=== PATIENT | female | born 1960 | race Caucasian/White ===

== ENCOUNTER 2016-06-10 18:01 | Emergency (ER) | payer SELFPAY ==
[~2016-06-10] VITALS: Ht 154.9 cm; Wt 72.6 kg
[2016-06-10] MEDS ORDERED: IV NS 0.9% 500 ML BAG IV ONE (18:30)
[2016-06-10] MEDS ORDERED: OLANZAPINE 10 MG VIAL IM ONE ×2 (18:30→18:32)
[2016-06-10] MEDS ORDERED: WATER FOR INJECTION,STERILE 10 ML ONE (18:32)
[2016-06-10 18:54] LABS: BASOPHILS % (AUTO) 0.2 % (0.0-2.0); DIFF TOTAL % 100 %; EOSINOPHILS # (AUTO) 0.1 /CMM (0.0-0.7); EOSINOPHILS % (AUTO) 1.2 % (0.0-6.0); HEMATOCRIT 38 % (33-45); HEMOGLOBIN 12.4 g/dL (11.5-14.8); LYMPHOCYTES # (AUTO) 1.4 /CMM (0.8-4.8); LYMPHOCYTES % (AUTO) 13.8 % (20.0-44.0); MEAN CORPUSCULAR HEMOGLOBIN 28 PG (26.0-33.0); MEAN CORPUSCULAR HGB CONC 33 g/dl (31.0-36.0); MEAN CORPUSCULAR VOLUME 85 fL (82-100); MONOCYTES # (AUTO) 0.7 /CMM (0.1-1.30); MONOCYTES % (AUTO) 7.2 % (2.0-12.0); NEUTROPHILS % (AUTO) 77.6 % (43.0-81.0); PLATELET COUNT (AUTO) 268 /CMM (150-450); RED BLOOD CELL COUNT(AUTO) 4.43 MIL/uL (4.0-5.2); WHITE BLOOD COUNT (AUTO) 10.3 K/uL (4.3-11.0)
[2016-06-10 19:05] LABS: ANION GAP 13 (5-14); CALCIUM, SERUM 9.5 mg/dL (8.5-10.1); CARBON DIOXIDE 27 mmol/L (21-32); CHLORIDE 107 mmol/L (98-107); GFR 58 mL/min (>60); GLUCOSE 113 mg/dL (74-106); POTASSIUM 4.1 mmol/L (3.5-5.1); SODIUM SERUM 143 mmol/L (136-145); UREA NITROGEN, BLOOD 10 mg/dL (7-18)
[2016-06-10] MEDS ORDERED: LORAZEPAM INJ 2 MG/ML VIAL ONE (19:09)
[2016-06-10 19:11] LABS: TROPONIN I < 0.017 ng/mL (0.00-0.056)
[2016-06-10] MEDS ORDERED: IV NS 0.9% 500 ML IV ONE (19:15)
[2016-06-10] MEDS ORDERED: IV SET PRIMARY 1 EA INFUS.SET MC ONE ×2 (19:15→19:20)
[2016-06-10] MEDS ORDERED: IV NS 0.9% 1,000 ML ONE (19:20)
[2016-06-10] MEDS ORDERED: IV NS 0.9% 1,000 ML IV ONE (19:30)
[2016-06-10] MEDS ORDERED: LORAZEPAM INJ 2 MG/ML VIAL IV ONE (19:30)
[2016-06-11 07:42] VITALS: BP 121/68
== END 2016-06-11 06:02 | disposition home or self-care (01) ==
LOC: ER 18:03
DX: F19.10 Other psychoactive substance abuse, uncomplicated (principal); R41.82 Altered mental status, unspecified; F17.210 Nicotine dependence, cigarettes, uncomplicated; Z59.0 Homelessness; F10.20 Alcohol dependence, uncomplicated
CPT/HCPCS: 36415; 70450; 80048; 84484; 85025; 93005; 96372; 96374; 99285; A4606; G0481; J2060; J3490; J7030; J7040; Z7610; G6040-TC

== ENCOUNTER 2018-06-17 22:28 | Inpatient (IN) | payer MEDICAID ==
[~2018-06-17] VITALS: Ht 172.7 cm; Wt 60.8 kg
--- NOTE | 2018-06-17 23:25 | NUR ---
Pt came in from the streets with c/o abdominal pain, states "my liver hurts ." Pt is A, O/4, walks without difficulty, on RA, does not appear in distress. Awaiting orders from .
[2018-06-17] MEDS ORDERED: ONDANSETRON 4 MG TAB.RAPDIS ONE (23:49)
[2018-06-17] MEDS ORDERED: HYDROCODONE/APAP 10/325MG 1 EA TABLET ONE (23:49)
[2018-06-17 23:57] LABS: BASOPHILS # (AUTO) 0.1 /CMM (0.0-0.2); BASOPHILS % (AUTO) 0.3 % (0.0-2.0); EOSINOPHILS % (AUTO) 0.3 % (0.0-6.0); HEMATOCRIT 41 % (33-45); HEMOGLOBIN 13.5 g/dL (11.5-14.8); LYMPHOCYTES # (AUTO) 1.3 /CMM (0.8-4.8); LYMPHOCYTES % (AUTO) 5.9 % (20.0-44.0); MEAN CORPUSCULAR HGB CONC 33 g/dl (31.0-36.0); MEAN CORPUSCULAR VOLUME 88 fL (82-100); MONOCYTES # (AUTO) 1.7 /CMM (0.1-1.30); MONOCYTES % (AUTO) 7.9 % (2.0-12.0); NEUTROPHILS # (AUTO) 18.6 /CMM (1.8-8.9); NEUTROPHILS % (AUTO) 85.6 % (43.0-81.0); PLATELET COUNT (AUTO) 332 /CMM (150-450); RED BLOOD CELL COUNT(AUTO) 4.67 MIL/uL (4.0-5.2); WHITE BLOOD COUNT (AUTO) 21.8 K/uL (4.3-11.0)
[2018-06-18] MEDS ORDERED: ONDANSETRON 4 MG TAB.RAPDIS SL ONE
[2018-06-18] MEDS ORDERED: HYDROCODONE/APAP 10/325MG 1 EA TABLET PO ONE
[2018-06-18 00:05] LABS: CARBON DIOXIDE 26 mmol/L (21-32); CHLORIDE 101 mmol/L (98-107); CREATININE 0.5 mg/dL (0.6-1.3); GLUCOSE 115 mg/dL (74-106); POTASSIUM 4.1 mmol/L (3.5-5.1); SODIUM SERUM 135 mmol/L (136-145); UREA NITROGEN, BLOOD 7 mg/dL (7-18)
--- NOTE | 2018-06-18 00:07 | NUR ---
Pt transported to Radiology for CT Abdomen
[2018-06-18 00:11] LABS: ALANINE AMINOTRANSFERASE 19 U/L (12-78); ALBUMIN 3.3 g/dL (3.4-5.0); ALKALINE PHOSPHATASE 90 U/L (46-116); ASPARTATE AMINOTRANSFERASE 15 U/L (15-37); BILIRUBIN,DIRECT 0.1 mg/dL (0.0-0.2); BILIRUBIN,TOTAL 0.2 mg/dL (0.2-1.0); LIPASE 150 U/L (73-393)
--- NOTE | 2018-06-18 00:12 | NUR ---
Pt transported back from Radiology
--- NOTE | 2018-06-18 00:15 | NUR ---
US Gallbladder in progress
[2018-06-18] MEDS ORDERED: CEFTRIAXONE 1 G in IV D5W 50 ML IV ONE (00:30)
[2018-06-18] MEDS ORDERED: PIPERACILLIN /TAZOBACTAM 3.375 G VIAL IV ONE (00:39)
--- NOTE | 2018-06-18 00:53 | NUR ---
PANEL PAGED PER MD BAIRES
[2018-06-18] MEDS ORDERED: PIPERACILLIN /TAZOBACTAM 3.375 G in IV D5W 50 ML IV ONE (01:00)
[2018-06-18] MEDS ORDERED: ACETAMINOPHEN 325 MG TABLET PO PRN (01:30)
[2018-06-18] MEDS ORDERED: Z GUARD REMEDY 2 OZ OINT TP PRN (01:30)
[2018-06-18] MEDS ORDERED: MORPHINE SULFATE INJ 2 MG/ML DISP.SYRIN IV PRN (01:30)
[2018-06-18] MEDS ORDERED: ONDANSETRON HCL/PF 4 MG/2 ML VIAL IVP PRN (01:30)
[2018-06-18] MEDS ORDERED: MAG HYDROX/AL HYDROX/SIMETH 30 ML UDC PO PRN (01:30)
[2018-06-18] MEDS ORDERED: MAGNESIUM HYDROXIDE 30 ML UDC PO PRN (01:30)
--- NOTE | 2018-06-18 01:35 | NUR ---
Pt admitted to Rm 200, report given to CHRISTIAN Nolasco.
--- NOTE | 2018-06-18 01:40 | NUR ---
VRT MECHANIC NOTES PT ARRIVED TO THE UNIT VIA GURNEY AT 0140. PT CAME INTO THE HOSPITAL DUE TO ABD PAIN. ALL PATIENT BELONGINGS ACCOUNTED FOR AND DOCUMENTED. PT HAS A LEFT HAND #20 INTACT AND PATENT. ORIENTED PT TO THE USE OF THE CALL LIGHT BUTTON. SAFETY PRECAUTIONS IN PLACE, BED IN LOWEST LOCKED POSITION, X2 SIDE RAILS UP AND CALL LIGHT WITHIN REACH. WILL CONTINUE TO MONITOR.
[2018-06-18] MEDS: IV NS 0.9% 1,000 ML IV PRN (01:59)
[2018-06-18 02:47] LABS: APPEARANCE,URINE SL CLOUDY (CLEAR); BILIRUBIN,URINE NEGATIVE (NEGATIVE); BLOOD, URINE 3+ Ery/uL (NEGATIVE); COLOR,URINE YELLOW (YELLOW); KETONES,URINE NEGATIVE (NEGATIVE); LEUKOCYTE ESTERASE ,URINE 3+ (NEGATIVE); NITRITE, URINE NEGATIVE (NEGATIVE); PROTEIN,URINE NEGATIVE (NEGATIVE); UGLUCOSE NEGATIVE (NEGATIVE); UROBILINOGEN,URINE 0.2 EU/dL (0.2)
[2018-06-18 02:56] LABS: BACTERIA,URINE Moderate /HPF (None Seen); SQUAMOUS EPITHELIAL CELL,UR Moderate /HPF (None Seen); WBC,URINE 51-80 /HPF (0-3)
[2018-06-18] MEDS: HYDROCODONE/APAP 5/325MG 1 EACH TABLET PO PRN ×3 (04:58→21:25)
--- NOTE | 2018-06-18 05:20 | NUR ---
RN NOTES MORPHINE UNAVAILABLE ON UNIT. CALLED TO CLARIFY COMPARABLE MEDICATION WITH MOUSTAPHA PETERSON NP. NICHOLAS ORDERED PRN 0.5MG DILAUDID Q6H IV.
[2018-06-18] MEDS ORDERED: PIPERACILLIN /TAZOBACTAM 3.375 G in IV D5W 50 ML IV SCH (06:00)
--- NOTE | 2018-06-18 07:35 | NUR ---
MS RN OPENING NOTES RECEIVED PT LAYING IN BED, RESTING COMFORTABLE. PT IS EASILY AROUSABLE. PT IS A/O 4, AFEBRILE. RESPIRATIONS ARE EVEN AND UNLABORED, NOT IN ANY ACUTE DISTRESS NOTED. DENIES ANY CHEST PAIN, SOB, N/V. IV SITE TO LEFT HAND INTACT, NO INFILTRATION NOTED. DRESSING KEPT CLEAN AND DRY. SAFETY MEASURES ARE IN PLACE. INSTRUCTED PT TO USE CALL LIGHT WHEN ASSISTANCE IS NEEDED, CALL LIGHT IS LEFT WITHIN REACH. WILL CONTINUE TO MONITOR THROUGHOUT SHIFT FOR CONTINUITY OF CARE.
[2018-06-18 08:00] VITALS: BP 99/53
[2018-06-18] MEDS: PANTOPRAZOLE 40 MG VIAL IV SCH (08:43)
[2018-06-18] MEDS: PIPERACILLIN /TAZOBACTAM 3.375 G in IV D5W 100 ML IV SCH ×2 (09:37→17:03)
--- NOTE | 2018-06-18 11:09 | NUR ---
Social service consult requested by RAMAKRISHNA Orellana for homelessness and substance abuse. Pt. is a 58 year old female who was admitted to [facility] for cholecystitis. SW met with pt. bedside. Pt. is alert and oriented x 4. Pt. appears disheveled. Pt's belongings are bedside. SW was informed by pt's RN that pt. was caught smoking marijuana in the bathroom. Marijuana was confiscated from the pt. and pt. was informed about the rules and regulations regarding smoking. SW also reiterated to the pt. the rules regarding smoking in the hospital. Pt. states she is not homeless and has a place to live in [facility]. However, pt. would not give SW the address to where she resides. Pt. states she is going to call her friend Stepan and stay at his house. SW asked for Stepan's phone number, but pt. did not want to give it to the SW. Pt. denies drug use except for marijuana use. Pt. states she did use cocaine in the past when she was younger but doesn't anymore. Pt. denies drinking alcohol. JEFFREY offered pt. homeless patient resources and snf placement, however pt. declined. Pt. states, she doesn't need any resources. No other social service needs are requested at this time. SW is available, if needed. JEFFREY to meet with pt. once again prior to discharge to offer resources again.
--- NOTE | 2018-06-18 15:31 | NUR ---
MS GONZALES NOTES-- EXPLAINED DISCHARGE PAPERWORK TO PT AND DAUGHTER NITA WITH VERBAL AND WRITTEN UNDERSTANDING. BELONGINGS LIST WAS DONE. PT IS CURRENTLY WEARING BOTH UPPER AND LOWER DENTURES. GAVE REPORT TO JON FROM [facility]. WAITING TRANSPORTATION. Addendum: 06/18/18 at 1637 by JUAN BLAKE RN INCORRECT CHART.
--- NOTE | 2018-06-18 15:31 | NUR ---
MS GONZALES NOTES-- EXPLAINED DISCHARGE PAPERWORK TO PT AND DAUGHTER NITA WITH VERBAL AND WRITTEN UNDERSTANDING. BELONGINGS LIST WAS DONE. PT IS CURRENTLY WEARING BOTH UPPER AND LOWER DENTURES. GAVE REPORT TO JON FROM [facility]. WAITING TRANSPORTATION. Addendum: 06/18/18 at 1633 by JUAN BLAKE RN INCORRECT CHART.
[2018-06-18 16:00] VITALS: BP 95/51
--- NOTE | 2018-06-18 16:30 | NUR ---
MS SNOUT PULLER NOTES PT DISCHARGE TO [facility] IN STABLE CONDITION. PT IS A/O X4, AFEBRILE. RESPIRATIONS ARE EVEN AND UNLABORED, NOT IN ANY ACUTE DISTRESS NOTED. PT DENIES ANY CHEST PAIN AT THIS TIME, NO C/O SOB, N/V. PUPILS ARE REACTIVE TO LIGHT, BILATERAL HAND ELECTRICAL ACCESSORIES ASSEMBLER ARE STRONG AND EQUAL. DENIES ANY BLADDER DISCOMFORT. IV SITE TO RAC INTACT, DRESSING KEPT CLEAN AND DRY. PT P/U BY [facility] WITH 2 EMT PERSONNEL. PT LEFT IN STABLE CONDITION. Addendum: 06/18/18 at 1635 by JUAN BLAKE RN INCORRECT CHART. PLEASE DISREGARD.
--- NOTE | 2018-06-18 16:35 | NUR ---
MS RN NOTES-- PT IS NOT IN ANY APPARENT DISTRESS NOTED. WILL CONTINUE TO MONITOR THE PT.
[2018-06-18] MEDS: HYDROMORPHONE INJ 2 MG/ML DISP.SYRIN IV PRN (17:03)
--- NOTE | 2018-06-18 18:32 | NUR ---
MS RN CLOSING NOTES ALL DUE MEDS GIVEN, NEEDS MET AND RENDERED. PT REMAINS A/O X4, AFEBRILE. RESPIRATIONS ARE EVEN AND UNLABORED, NOT IN ANY ACUTE DISTRESS NOTED. PT DENIES ANY PAIN AT THIS, DILAUDID IS NOTED TO BE EFFECTIVE. DENIES ANY SOB, N/V. IV SITE TO LAC INTACT, NO INFILTRATION NOTED. DRESSING KEPT CLEAN AND DRY. IV ABX RUNNING AT THIS TIME W/ NO ASE NOTED. SAFETY MEASURES ARE IN PLACE. REMINDED PT TO USE CALL LIGHT WHEN ASSISTANCE IS NEEDED, CALL LIGHT IS LEFT WITHIN REACH. WILL ENDORSE TO NEXT SHIFT FOR CONTINUITY OF CARE.
--- NOTE | 2018-06-18 18:48 | NUR ---
MS RN NOTES-- UA SPECIMEN COLLECTED. LAB NOTIFIED.
--- NOTE | 2018-06-18 19:30 | NUR ---
RN NOTES RECEIVED PT. SLEEPING BUT AROUSABLE, NO PAIN NOTED, NO SOB, CALL LIGHT WITHIN REACH, [id number], CONTINUE TO MONITOR
[2018-06-18 19:52] VITALS: BP 90/56
--- NOTE | 2018-06-18 21:28 | NUR ---
RN NOTES COMPLAINED OF ABDOMINAL PAIN- NORCO 5/325 MG PO GIVEN ORDERED, V/S STABLE....
--- NOTE | 2018-06-18 22:27 | NUR ---
RN NOTES COMPLAINED OF CONSTIPATION- MOM 30ML PO GIVEN ORDERED
[2018-06-19] MEDS: PIPERACILLIN /TAZOBACTAM 3.375 G in IV D5W 100 ML IV SCH ×3 (00:06→16:58)
[2018-06-19] MEDS: IV NS 0.9% 1,000 ML IV PRN ×2 (00:07→21:10)
[2018-06-19] MEDS: HYDROMORPHONE INJ 2 MG/ML DISP.SYRIN IV PRN ×2 (00:07→06:42)
--- NOTE | 2018-06-19 00:16 | NUR ---
RN NOTES COMPLAINED OF ABDOMINAL PAIN- DIALUDID 0.5MG IV GIVEN ORDERED. V/S STABLE
--- NOTE | 2018-06-19 06:15 | NUR ---
RN NOTES PT. WAS MOVED TO ANOTHER UNIT ([facility]), EXPLAINED TO THE PATIENT THE REASON WHY WERE MOVING HER AND SHE AGREED
--- NOTE | 2018-06-19 06:50 | NUR ---
RN NOTES COMPLAINED OF ABDOMINAL PAIN- DILAUDID 0.5MG IV GIVEN ORDERED, V/S STABLE, MORNING CARE RENDERED, PT. NEEDS ATTENDED
[2018-06-19 07:27] LABS: BASOPHILS % (AUTO) 0.2 % (0.0-2.0); EOSINOPHILS % (AUTO) 2.2 % (0.0-6.0); HEMATOCRIT 35 % (33-45); HEMOGLOBIN 11.5 g/dL (11.5-14.8); LYMPHOCYTES # (AUTO) 1.9 /CMM (0.8-4.8); LYMPHOCYTES % (AUTO) 21.3 % (20.0-44.0); MEAN CORPUSCULAR HGB CONC 33 g/dl (31.0-36.0); MEAN CORPUSCULAR VOLUME 89 fL (82-100); MONOCYTES # (AUTO) 1.2 /CMM (0.1-1.30); MONOCYTES % (AUTO) 13.8 % (2.0-12.0); NEUTROPHILS # (AUTO) 5.7 /CMM (1.8-8.9); NEUTROPHILS % (AUTO) 62.5 % (43.0-81.0); PLATELET COUNT (AUTO) 268 /CMM (150-450); RED BLOOD CELL COUNT(AUTO) 3.94 MIL/uL (4.0-5.2)
[2018-06-19 07:35] LABS: CALCIUM, SERUM 8.3 mg/dL (8.5-10.1); CREATININE 0.5 mg/dL (0.6-1.3); MAGNESIUM 2.1 mg/dL (1.8-2.4); PHOSPHORUS 3.5 mg/dL (2.5-4.9)
[2018-06-19 07:44] LABS: THYROID STIMULATING HORMONE 2.16 uIU/mL (0.358-3.74)
--- NOTE | 2018-06-19 07:47 | NUR ---
MS RN OPENING NOTES RECEIVED PT LAYING IN BED WITH HOB ELEVATED. PT IS A/O X4, AFEBRILE. RESPIRATIONS ARE EVEN AND UNLABORED, NOT IN ANY ACUTE DISTRESS NOTED. DENIES ANY PAIN AT THIS TIME. NO C/O SOB, N/V. PUPILS ARE REACTIVE TO LIGHT, BILATERAL HAND PIPE MAKER ARE STRONG AND EQUAL. IV SITE TO LAC INTACT, NO INFILTRATION NOTED. DRESSING KEPT CLEAN AND DRY. PT IS NPO AND IS AWARE, FOR HIDA SCAN TODAY. SAFETY MEASURES ARE IN PLACE. INSTRUCTED PT TO USE CALL LIGHT WHEN ASSISTANCE IS NEEDED, CALL LIGHT IS LEFT WITHIN REACH. WILL CONTINUE TO MONITOR THROUGHOUT SHIFT FOR CONTINUITY OF CARE.
[2018-06-19 08:00] VITALS: BP 97/59
[2018-06-19] MEDS: PANTOPRAZOLE 40 MG VIAL IV SCH (09:14)
--- NOTE | 2018-06-19 11:25 | NUR ---
MS RN NOTES-- PT P/U BY RADIOLOGY FOR HIDA SCAN IN STABLE CONDITION. NO NEW SKIN ISSUES NOTED. IV SITE TO LAC INTACT, NO INFILTRATION NOTED. DRESSING KEPT CLEAN AND DRY.
--- NOTE | 2018-06-19 13:15 | NUR ---
MS RN NOTES-- PT CAME BACK FROM HIDA SCAN IN STABLE CONDITION. PER YOLANDA, PT WILL GO BACK DOWN AT 1530. PT MADE AWARE.
--- NOTE | 2018-06-19 15:30 | NUR ---
MS RN NOTES-- PT P/U BY RADIOLOGY IN STABLE CONDITION VIA WC.
--- NOTE | 2018-06-19 15:48 | NUR ---
MS RN NOTES-- PT CAME BACK FROM RADIOLOGY IN STABLE CONDITION VIA WHEELCHAIR. NO NEW SKIN ISSUES NOTED.
[2018-06-19 16:00] VITALS: BP 94/47
--- NOTE | 2018-06-19 17:35 | NUR ---
MS RN NOTES-- RAMAKRISHNA GERARD MADE AWARE OF HIDA SCAN RESULTS.
--- NOTE | 2018-06-19 18:22 | NUR ---
MS RN NOTES-- PT SEEN AND EXAMINED BY RAMAKRISHNA GERARD. PT WILL BE DISCHARGED TOMORROW PER MOUSTAPHA
--- NOTE | 2018-06-19 18:22 | NUR ---
MS RN CLOSING NOTES ALL DUE MEDS GIVEN, NEEDS MET AND RENDERED. PT IS A/O X4 AFEBRILE. RESPIRATIONS ARE EVEN AND UNLABORED, NOT IN ANY ACUTE DISTRESS NOTED. PT DENIES ANY PAIN AT THIS TIME, NO C/O SOB,N /V. PT WAS ABLE TO TOLERATE REGULAR DIET, DOUBLE PORTIONS. IV ACCESS TO LAX INTACT, NO INFILTRATION NOTED. DRESSING KEPT CLEAN AND DRY. IV ABX RUNNING AT THIS TIME, TOLERATING WELL. SAFETY MEASURES ARE IN PLACE. REMINDED PT TO USE CALL LIGHT WHEN ASSISTANCE IS NEEDED, CALL LIGHT IS LEFT WITHIN REACH.
[2018-06-19] MEDS ORDERED: BISACODYL SUPP (10 MG) 10 MG/SUPP.RECT SUPP.RECT RC PRN (18:30)
[2018-06-19] MEDS ORDERED: MINERAL OIL 133 ML (PYXIS) 1 EA ENEMA RC PRN (18:30)
[2018-06-19] MEDS ORDERED: POLYETHYLENE GLYCOL 3350 17 GM POWD.PACK PO ONE (18:30)
--- NOTE | 2018-06-19 19:00 | NUR ---
RN NOTES RECEIVE PT IN THE BED A/O X 3 IN STABLE CONDITION, NOT IN DISTRESS, SAFETY MEASURES IN PLACE. WILL CONTINUE TO MONITOR.
[2018-06-19 20:00] VITALS: BP 102/60
[2018-06-20] MEDS: PIPERACILLIN /TAZOBACTAM 3.375 G in IV D5W 100 ML IV SCH ×2 (01:24→09:54)
--- NOTE | 2018-06-20 06:14 | NUR ---
RN CLOSING NOTE PT IN BED AWAKE IN BED WATCHING TV TOLERATING ROOM AIR 99%. STABLE CONDITION, NOT IN DISTRESS. RESPIRATIONS EVEN AND UNLABORED. NURSING CARE RENDERED, GOOD SKIN CARE PROVIDED. NO COMPLAIN OF PAIN KEPT CLEAN AND DRY AND COMFORT, SAFETY MEASURES IN PLACE, CALL LIGHT WITHIN REACH. WILL ENDORSE TO BRANCH OPERATIONS MANAGER FOR HELEN.
[2018-06-20 07:58] VITALS: BP 94/54
--- NOTE | 2018-06-20 08:00 | NUR ---
m/s boilermaking supervisor: initial assessment received pt in bed awake, a/ox4; ambulatory. refused skin assessment. for d'c planning today. no c/o pain or any discomfort. will continue to monitor.
[2018-06-20] MEDS: PANTOPRAZOLE 40 MG VIAL IV SCH (09:54)
--- NOTE | 2018-06-20 10:00 | NUR ---
m/s automobile technician: gi f/u seen by dr. webb at this time and clear for d'c under gi standpoint as stated.
--- NOTE | 2018-06-20 11:42 | NUR ---
JEFFREY met with pt. bedside to discuss discharge plan. Pt. states she would like to go to the [facility] located at [address] [place] [address], in [place] where her friend Stepan will pick her up. Pt. declined any homeless resources. Homeless patient waiver form to be signed by pt. prior to discharge. Taxi transportation to be arranged by [facility] . Addendum: 06/20/18 at 1210 by ALONA MURPHY Homeless Patient Waiver Form was signed by the pt. and placed in pt's chart. Pt. to have lunch prior to discharge. No other social service needs are requested at this time. JEFFREY is available, if needed. JEFFREY updated ARJUN Sheikh and RAMAKRISHNA Smith regarding pt's discharge plan.
--- NOTE | 2018-06-20 12:23 | NUR ---
m/s pediatric np: notes received order to discharge pt with d'c instructions: DC to friend. History of homelessness; administrator social welfare obtained address and, provided taxi voucher, Followup with PCP within 1 week, High fiber diet, Smoking cessation, Seek immediate medical attention for worsening symptoms, chest pain,, shortness of breath, palpitations, abdominal pain distention, intractable, nausea and vomiting, diarrhea, hematochezia, melena, weakness, loss of, consciousness, neurological deficit, or any other emergent concerns. pt already signed the homeless pt waiver form and place in chart by gunner (administrator social welfare). pt will meet her friend at the address that was provided by pt. pt had move her bowel as stated at this time. h/l removed.
--- NOTE | 2018-06-20 12:35 | NUR ---
m/s kalsominer: notes discharged instructions with taxi voucher in hand given to pt and verbalized understanding. all belongings returned to pt.
--- NOTE | 2018-06-20 12:40 | NUR ---
m/s tax revenue officer: notes discharged home via taxi with voucher in stable condition with all belongings.
== END 2018-06-20 12:42 | disposition home or self-care (01) | DRG 872 ==
LOC: ER 22:29 → MEDSG2 06-18 01:00 → MED 06-19 06:14
PROVIDERS: ADMIT Hospitalist; ATTEND Hospitalist
DX: A41.9 Sepsis, unspecified organism (principal); E87.1 Hypo-osmolality and hyponatremia; E44.1 Mild protein-calorie malnutrition; N39.0 Urinary tract infection, site not specified; K82.0 Obstruction of gallbladder; Z59.0 Homelessness; F17.210 Nicotine dependence, cigarettes, uncomplicated; E88.09 Other disorders of plasma-protein metabolism, not elsewhere classified; Z68.20 Body mass index [BMI] 20.0-20.9, adult; K59.00 Constipation, unspecified; F19.10 Other psychoactive substance abuse, uncomplicated; K42.9 Umbilical hernia without obstruction or gangrene
CPT/HCPCS: 36415; 76705-TC; 78226; 80048-TC; 80061-TC; 80076-TC; 80305; 81000-TC; 83605-TC; 83690-TC; 83735-TC; 84100-TC; 84443-TC; 84484-TC; 84703-TC; 85025-TC; 85730-TC; 87040-TC; 87081-TC; 87086-TC; 87186-TC; A9537; C9113; G0378; J0696; J1170; J2543; J7030; J7060; Q0162

== ENCOUNTER 2018-07-03 08:40 | Emergency (ER) | payer MEDICAID ==
[~2018-07-03] VITALS: Ht 157.5 cm; Wt 49.9 kg
[2018-07-03 08:45] VITALS: BP 126/58
[2018-07-03 09:21] LABS: BASOPHILS % (AUTO) 0.5 % (0.0-2.0); EOSINOPHILS % (AUTO) 3.2 % (0.0-6.0); HEMATOCRIT 40 % (33-45); HEMOGLOBIN 13.1 g/dL (11.5-14.8); LYMPHOCYTES # (AUTO) 1.2 /CMM (0.8-4.8); LYMPHOCYTES % (AUTO) 16.7 % (20.0-44.0); MEAN CORPUSCULAR HGB CONC 33 g/dl (31.0-36.0); MEAN CORPUSCULAR VOLUME 87 fL (82-100); MONOCYTES # (AUTO) 0.7 /CMM (0.1-1.30); NEUTROPHILS # (AUTO) 5.2 /CMM (1.8-8.9); NEUTROPHILS % (AUTO) 69.6 % (43.0-81.0); PLATELET COUNT (AUTO) 253 /CMM (150-450); RED BLOOD CELL COUNT(AUTO) 4.58 MIL/uL (4.0-5.2); WHITE BLOOD COUNT (AUTO) 7.4 K/uL (4.3-11.0)
[2018-07-03 09:27] LABS: CARBON DIOXIDE 27 mmol/L (21-32); CHLORIDE 102 mmol/L (98-107); CREATININE 0.8 mg/dL (0.6-1.3); GLUCOSE 112 mg/dL (74-106); POTASSIUM 3.8 mmol/L (3.5-5.1); SODIUM SERUM 137 mmol/L (136-145); UREA NITROGEN, BLOOD 12 mg/dL (7-18)
[2018-07-03 09:34] LABS: ALANINE AMINOTRANSFERASE 36 U/L (12-78); ALBUMIN 3.3 g/dL (3.4-5.0); ALCOHOL, BLOOD < 3 mg/dL (0-0); ALKALINE PHOSPHATASE 101 U/L (46-116); ASPARTATE AMINOTRANSFERASE 21 U/L (15-37); BILIRUBIN,DIRECT 0.1 mg/dL (0.0-0.2); BILIRUBIN,TOTAL 0.3 mg/dL (0.2-1.0); TOTAL PROTEIN, SERUM 7.3 g/dL (6.4-8.2)
[2018-07-03 09:35] LABS: ACETAMINOPHEN < 10 ug/ml (10-30); SALICYLATE 2.2 mg/dL (2.8-20.0)
[2018-07-03 10:18] LABS: BILIRUBIN,URINE SMALL (NEGATIVE); BLOOD, URINE Large Ery/uL (NEGATIVE); KETONES,URINE Trace (NEGATIVE); LEUKOCYTE ESTERASE ,URINE Trace (NEGATIVE); NITRITE, URINE Positive (NEGATIVE); PROTEIN,URINE 100 mg/dl (NEGATIVE); UGLUCOSE Negative (NEGATIVE)
[2018-07-03 10:19] LABS: APPEARANCE,URINE HAZY (CLEAR); COLOR,URINE DARK YELLOW (YELLOW)
--- NOTE | 2018-07-03 10:20 | NUR ---
JEFFREY received a call from in ED requesting to see pt. for homelessness. Pt. is a 58 year old female who was brought to [facility] by ambulance [id number] from [facility]. [employer] was dispatched due to pt. creating disturbance at bus stop and bothering people. JEFFREY met with pt. bedside. Pt. is alert and oriented x 1. JEFFREY is familiar with pt. from previous inpatient admission on 06/19/18. Pt. appears disheveled, dirty and her clothing is covered with urine and blood stains. Pt. has strong urine odor. Pt. has her belongings on the bed. According to the nurse pt. is refusing to give urine sample until she gets food. SW reiterated to the pt. she will have to give urine sample prior to getting the food. Pt. agreed and provided urine sample. Food tray and juice was ordered for the pt. JEFFREY attempted to assess pt. however pt. is continuing to ramble nonsensical words. Currently JEFFREY is not able to complete a psychosocial assessment. SW to reassess pt. when pt. is more alert and oriented.
[2018-07-03 10:21] LABS: BACTERIA,URINE 1+ /HPF (None Seen)
--- NOTE | 2018-07-03 12:01 | NUR ---
SW was informed that pt. eloped from the facility.
--- NOTE | 2018-07-03 12:10 | NUR ---
CALLED [facility]EE [facility]YVA SPOKE WITH [employer]OV[employer]UDIT[employer] 693 REGARDING PATIENTS ELOPEMENT. THEY WILL BE SENDING A UNIT SHORLTY.
== END 2018-07-03 11:31 | disposition left against medical advice (07) ==
LOC: ER 08:42
DX: F91.8 Other conduct disorders (principal); F19.10 Other psychoactive substance abuse, uncomplicated; F10.10 Alcohol abuse, uncomplicated; F17.200 Nicotine dependence, unspecified, uncomplicated; Y90.0 Blood alcohol level of less than 20 mg/100 ml; Z88.8 Allergy status to other drugs, medicaments and biological substances; Z59.0 Homelessness
CPT/HCPCS: 36415; 80048; 80076; 80305; 80307; 80329; 81001; 85025; 87077; 87086; 87186; 99285; A4606; G0480; 81000-TC

== ENCOUNTER 2018-07-03 12:53 | Emergency (ER) | payer MEDICAID ==
[~2018-07-03] VITALS: Ht 157.5 cm; Wt 49.9 kg
[2018-07-03] MEDS ORDERED: CEFTRIAXONE 1 G VIAL ONE (12:59)
[2018-07-03] MEDS ORDERED: OLANZAPINE 10 MG VIAL IM ONE ×2 (13:00)
[2018-07-03] MEDS ORDERED: LORAZEPAM INJ 2 MG/ML VIAL ONE (13:00)
[2018-07-03] MEDS ORDERED: LORAZEPAM INJ 2 MG/ML VIAL IM ONE (13:00)
[2018-07-03] MEDS ORDERED: CEFTRIAXONE 1 G VIAL IM ONE (13:00)
--- NOTE | 2018-07-03 13:00 | NUR ---
PT BIB [employer] OFFICERS PT ELOPED FROM ER, PT IS ON 515-GD. PT AOX1, ANSWER TO NAME, NOT ANSWERING QUESTIONS APPROPRIETLY, RESPIRATIONS EVEN AND UNLABORED, NO SOB, NAD NOTED, PT ON MONITOR, PENDING ER PROVIDER NIKHIL
[2018-07-03] MEDS ORDERED: LIDOCAINE /MPF 1% VIAL 5 ML VIAL ONE (13:01)
--- NOTE | 2018-07-03 19:00 | NUR ---
PT COOPERATIVE WITH STAFF. PT CHANGED TO HOSPITAL GOWN, PT REQUESTED FOR A LUNCH TRAY, PT PROVIDED WITH FOOD. PT'S SITTER AT BEDSIDE
--- NOTE | 2018-07-03 22:49 | NUR ---
Patient is resting comfortably in bed with eyes closed. Easily aroused. VSS, Sitter at bedside
--- NOTE | 2018-07-04 00:41 | NUR ---
Patient is resting comfortably in bed with eyes closed. Easily aroused. VSS
--- NOTE | 2018-07-04 02:04 | NUR ---
pt asleep cont' on 1:1 sitter monitoring, vs stable.
--- NOTE | 2018-07-04 04:00 | NUR ---
pt asleep, apears comfortable, vs stable no distress, safety precaution in place, sitter by rm.
--- NOTE | 2018-07-04 06:00 | NUR ---
pt sleeping comfortable at this time safety measures in place, will cont' to monitor.
--- NOTE | 2018-07-04 07:28 | NUR ---
REC'D REPORT FROM CHRISTIAN ROLLE FOR HELEN Addendum: 07/04/18 at 2706 by RONEL PT UP TO GO TO BATHROOM
--- NOTE | 2018-07-04 08:28 | NUR ---
SPOKE WITH PT TO PROVIDE HER WITH CLEAN CLOTHES. PT REFUSES AND STATES "I HAVE CLEAN CLOTHES. GET OUT OF HERE, I KNOW WHO YOU ARE"
--- NOTE | 2018-07-04 09:32 | NUR ---
PROVIDED BREAKFAST TRAY PER REQUEST
[2018-07-04] MEDS ORDERED: OLANZAPINE 5 MG TABLET PO ONE (10:00)
--- NOTE | 2018-07-04 10:08 | NUR ---
Patient discharged to home in stable condition. Written and verbal after care instructions given. Patient verbalizes understanding of instruction.
[2018-07-04] MEDS ORDERED: OLANZAPINE 5 MG TABLET ONE (10:18)
[2018-07-04 11:26] VITALS: BP 118/64
== END 2018-07-04 10:08 | disposition home or self-care (01) ==
LOC: ER 12:55
DX: F15.959 Other stimulant use, unspecified with stimulant-induced psychotic disorder, unspecified (principal); N39.0 Urinary tract infection, site not specified; F12.10 Cannabis abuse, uncomplicated; F19.10 Other psychoactive substance abuse, uncomplicated; F10.10 Alcohol abuse, uncomplicated; F17.200 Nicotine dependence, unspecified, uncomplicated; Y90.9 Presence of alcohol in blood, level not specified; Z59.0 Homelessness; Z88.8 Allergy status to other drugs, medicaments and biological substances
CPT/HCPCS: 96372 ×3; 99285; A4606; J0696; J2060; J3490 ×2; Z7610; 36415; 80048-TC; 80076-TC; 80305; 81000-TC; 85025-TC; 87086-TC; 87186-TC; G0480

== ENCOUNTER 2018-07-29 14:51 | Emergency (ER) | payer MEDICAID, OTHER ==
[~2018-07-29] VITALS: Ht 160 cm; Wt 64.4 kg
--- NOTE | 2018-07-29 15:20 | NUR ---
BIB [facility]78 FOR MED CLEARANCE, ABRASION TO FACE,S/P FALL DURING AN ARREST. PT HYPERVERBAL, AAOX3, VSS. RR EVEN & UNLABORED, NO ACUTE DISTRESS NOTED. AWAITING EVAL BY ERMD/PA. WILL CONT TO MONITOR. LEE OFFICERS @ BS.
--- NOTE | 2018-07-29 15:50 | NUR ---
LABS DRAWN & SENT TO LAB.
[2018-07-29 16:04] LABS: BASOPHILS # (AUTO) 0.1 /CMM (0.0-0.2); BASOPHILS % (AUTO) 0.5 % (0.0-2.0); HEMATOCRIT 40 % (33-45); HEMOGLOBIN 13.1 g/dL (11.5-14.8); LYMPHOCYTES # (AUTO) 1.9 /CMM (0.8-4.8); LYMPHOCYTES % (AUTO) 16.4 % (20.0-44.0); MEAN CORPUSCULAR HGB CONC 33 g/dl (31.0-36.0); MEAN CORPUSCULAR VOLUME 88 fL (82-100); MONOCYTES % (AUTO) 9.2 % (2.0-12.0); NEUTROPHILS # (AUTO) 8.2 /CMM (1.8-8.9); NEUTROPHILS % (AUTO) 71.9 % (43.0-81.0); PLATELET COUNT (AUTO) 265 /CMM (150-450); RED BLOOD CELL COUNT(AUTO) 4.54 MIL/uL (4.0-5.2); WHITE BLOOD COUNT (AUTO) 11.3 K/uL (4.3-11.0)
[2018-07-29 16:14] LABS: CALCIUM, SERUM 9.4 mg/dL (8.5-10.1); CARBON DIOXIDE 30 mmol/L (21-32); CHLORIDE 105 mmol/L (98-107); CREATININE 0.8 mg/dL (0.6-1.3); GLUCOSE 84 mg/dL (74-106); POTASSIUM 5.1 mmol/L (3.5-5.1); SODIUM SERUM 140 mmol/L (136-145); UREA NITROGEN, BLOOD 13 mg/dL (7-18)
--- NOTE | 2018-07-29 16:20 | NUR ---
PT REFUSED CT SCAN, CORINNE CONTEH AWARE.
[2018-07-29 16:22] LABS: ALANINE AMINOTRANSFERASE 33 U/L (12-78); ALBUMIN 3.4 g/dL (3.4-5.0); ALCOHOL, BLOOD < 3 mg/dL (0-0); ALKALINE PHOSPHATASE 107 U/L (46-116); ASPARTATE AMINOTRANSFERASE 25 U/L (15-37); BILIRUBIN,TOTAL 0.1 mg/dL (0.2-1.0); SALICYLATE 3.1 mg/dL (2.8-20.0); TOTAL PROTEIN, SERUM 7.3 g/dL (6.4-8.2)
[2018-07-29 16:26] LABS: ACETAMINOPHEN < 2 ug/ml (10-30)
[2018-07-29 17:15] LABS: APPEARANCE,URINE Cloudy (CLEAR); BILIRUBIN,URINE SMALL (NEGATIVE); BLOOD, URINE Large Ery/uL (NEGATIVE); COLOR,URINE Dark (YELLOW); KETONES,URINE Trace (NEGATIVE); LEUKOCYTE ESTERASE ,URINE Negative (NEGATIVE); NITRITE, URINE Positive (NEGATIVE); PROTEIN,URINE 100 mg/dl (NEGATIVE); UGLUCOSE Negative (NEGATIVE)
--- NOTE | 2018-07-29 17:15 | NUR ---
CALLED FOR SANDWICH
[2018-07-29 17:50] LABS: BACTERIA,URINE Many /HPF (None Seen); SQUAMOUS EPITHELIAL CELL,UR Few /HPF (None Seen)
--- NOTE | 2018-07-29 17:54 | NUR ---
CALLED [facility] FOR PSYCH EVAL, TRANSFERRED CALL TO WERO HAMPTON)
[2018-07-29] MEDS ORDERED: CEFTRIAXONE 1GM BAG (ER ONLY) 1 GM/50 ML PIGGYBACK IV ONE (18:00)
[2018-07-29] MEDS ORDERED: CEFTRIAXONE 1 G VIAL ONE (18:10)
--- NOTE | 2018-07-29 18:39 | NUR ---
MEDICATED FOR UTI, PT KOBY WELL. PT STABLE, RR EVEN & UNLABORED, NAD NOTED @ THIS TIME. [employer] OFFICERS @ BS.
--- NOTE | 2018-07-29 19:06 | NUR ---
Pavan carrillo in ED - 07/29/18 at 1907 by NEGAR Patient discharged to home in stable condition. Written and verbal after care instructions given [employer] OFF[employer]. [employer] OFFICERS verbalizes understanding of instruction. Patient discharged to home in stable condition. Written and verbal after care instructions given. Patient verbalizes understanding of instruction.
--- NOTE | 2018-07-29 19:07 | NUR ---
Patient discharged to home in stable condition. Written and verbal after care instructions given [employer]. [employer] OFF[employer]ERS verbalizes understanding of instruction. IV removed. Catheter intact and site benign. Pressure and 4x4 applied to site. No bleeding noted.
[2018-07-29 19:08] VITALS: BP 110/64
== END 2018-07-29 19:10 ==
LOC: ER 15:01
DX: F15.10 Other stimulant abuse, uncomplicated (principal); N39.0 Urinary tract infection, site not specified; F19.10 Other psychoactive substance abuse, uncomplicated; F10.10 Alcohol abuse, uncomplicated; F17.200 Nicotine dependence, unspecified, uncomplicated; Y90.0 Blood alcohol level of less than 20 mg/100 ml; Z02.89 Encounter for other administrative examinations; Z59.0 Homelessness; Z60.2 Problems related to living alone; Z88.8 Allergy status to other drugs, medicaments and biological substances
CPT/HCPCS: 36415; 80048-TC; 80076-TC; 80305; 81000-TC; 85025-TC; 87086-TC; 87186-TC; G0480; J0696; J7060

== ENCOUNTER 2018-07-30 10:43 | Emergency (ER) | payer MEDICAID, OTHER ==
[~2018-07-30] VITALS: Ht 175.3 cm; Wt 56.7 kg
--- NOTE | 2018-07-30 11:26 | NUR ---
BIB [employer] FROM [facility], PT VERBALIZED "I WANT TO KILL MYSELF" +SI/-HI NOT IN CUSTODY. PT IS AMB, VSS, RR EVEN AND UNLABORED ON RA. SKIN INTACT, NO ACUTE DISTRESS NOTED. SI PRECAUTIONS IMPLEMENTED. READY FOR EVAL.
[2018-07-30 11:55] LABS: BASOPHILS % (AUTO) 0.4 % (0.0-2.0); EOSINOPHILS % (AUTO) 2.7 % (0.0-6.0); HEMATOCRIT 39 % (33-45); HEMOGLOBIN 12.7 g/dL (11.5-14.8); LYMPHOCYTES # (AUTO) 1.7 /CMM (0.8-4.8); LYMPHOCYTES % (AUTO) 22.6 % (20.0-44.0); MEAN CORPUSCULAR HGB CONC 33 g/dl (31.0-36.0); MEAN CORPUSCULAR VOLUME 88 fL (82-100); MONOCYTES # (AUTO) 0.8 /CMM (0.1-1.30); MONOCYTES % (AUTO) 11.4 % (2.0-12.0); NEUTROPHILS # (AUTO) 4.6 /CMM (1.8-8.9); NEUTROPHILS % (AUTO) 62.9 % (43.0-81.0); PLATELET COUNT (AUTO) 243 /CMM (150-450); RED BLOOD CELL COUNT(AUTO) 4.38 MIL/uL (4.0-5.2); WHITE BLOOD COUNT (AUTO) 7.3 K/uL (4.3-11.0)
[2018-07-30 12:03] LABS: APPEARANCE,URINE Slightly Cloudy (CLEAR); BILIRUBIN,URINE Negative (NEGATIVE); BLOOD, URINE Large Ery/uL (NEGATIVE); COLOR,URINE Yellow (YELLOW); KETONES,URINE Negative (NEGATIVE); LEUKOCYTE ESTERASE ,URINE Small (NEGATIVE); NITRITE, URINE Negative (NEGATIVE); PROTEIN,URINE 30 mg/dl (NEGATIVE); UGLUCOSE Negative (NEGATIVE); UROBILINOGEN,URINE 0.2 EU/dL (0.2)
[2018-07-30 12:04] LABS: CALCIUM, SERUM 9.1 mg/dL (8.5-10.1); CARBON DIOXIDE 32 mmol/L (21-32); CHLORIDE 106 mmol/L (98-107); CREATININE 0.7 mg/dL (0.6-1.3); GLUCOSE 97 mg/dL (74-106); SODIUM SERUM 139 mmol/L (136-145); UREA NITROGEN, BLOOD 14 mg/dL (7-18)
[2018-07-30 12:10] LABS: ALANINE AMINOTRANSFERASE 34 U/L (12-78); ALBUMIN 3.4 g/dL (3.4-5.0); ALCOHOL, BLOOD < 3 mg/dL (0-0); ALKALINE PHOSPHATASE 101 U/L (46-116); ASPARTATE AMINOTRANSFERASE 23 U/L (15-37); BILIRUBIN,TOTAL 0.1 mg/dL (0.2-1.0)
[2018-07-30 12:11] LABS: ACETAMINOPHEN 0 ug/ml (10-30)
[2018-07-30 12:20] LABS: BACTERIA,URINE Moderate /HPF (None Seen); SQUAMOUS EPITHELIAL CELL,UR Moderate /HPF (None Seen)
--- NOTE | 2018-07-30 12:57 | NUR ---
CALL BACK FROM ADRIAN SMITH LCSW W/IN AN HR
--- NOTE | 2018-07-30 13:57 | NUR ---
Patient is resting comfortably in bed with eyes closed. Easily aroused. VSS
--- NOTE | 2018-07-30 14:11 | NUR ---
PROVIDED PT WITH JUICE AND CRACKERS
--- NOTE | 2018-07-30 14:30 | NUR ---
SEEN BY RITA SMITH
--- NOTE | 2018-07-30 15:15 | NUR ---
Patient discharged to home in stable condition. Written and verbal after care instructions given. Patient verbalizes understanding of instruction. PT REFUSED TO SIGN DISCHARGE PAPERS.
[2018-07-30 15:20] VITALS: BP 138/86
--- NOTE | 2018-07-30 15:21 | NUR ---
UNABLE TO DEPART PT FROM SYSTEM. ADVANCING STATUS.
== END 2018-07-30 20:00 | disposition home or self-care (01) ==
LOC: ER 19:27
DX: F29 Unspecified psychosis not due to a substance or known physiological condition (principal); F19.10 Other psychoactive substance abuse, uncomplicated; F10.10 Alcohol abuse, uncomplicated; F17.200 Nicotine dependence, unspecified, uncomplicated; F15.10 Other stimulant abuse, uncomplicated; Y90.0 Blood alcohol level of less than 20 mg/100 ml; Z60.2 Problems related to living alone; Z59.0 Homelessness; Z04.6 Encounter for general psychiatric examination, requested by authority; Z88.8 Allergy status to other drugs, medicaments and biological substances
CPT/HCPCS: 36415; 80053; 80305; 80307; 80329; 81001; 85025; 87086; 99284; A4606; G0480; 81000-TC

== ENCOUNTER 2020-02-17 03:23 | Emergency (ER) | payer MEDICAID ==
[~2020-02-17] VITALS: Ht 172.7 cm; Wt 63.5 kg
[2020-02-17 03:31] VITALS: BP 129/74
--- NOTE | 2020-02-17 03:54 | NUR ---
PT AAOX4. BIBRA C/O WAS FOUND ON SIDE OF ROAD. UPON ASSESSMENT PT AMBULATORY WITH STEADY GAIT. NO TRAUMA NOTED. REQUESTING APPLE JUICE.
--- NOTE | 2020-02-17 04:06 | NUR ---
APPLE JUICE PROVIDED.
[2020-02-17 04:13] LABS: BASOPHILS # (AUTO) 0.1 /CMM (0.0-0.2); BASOPHILS % (AUTO) 0.7 % (0.0-2.0); EOSINOPHILS % (AUTO) 0.8 % (0.0-6.0); HEMATOCRIT 35 % (33-45); HEMOGLOBIN 11.8 g/dL (11.5-14.8); LYMPHOCYTES # (AUTO) 1.4 /CMM (0.8-4.8); LYMPHOCYTES % (AUTO) 8.8 % (20.0-44.0); MEAN CORPUSCULAR HGB CONC 33 g/dl (31.0-36.0); MEAN CORPUSCULAR VOLUME 83 fL (82-100); MONOCYTES # (AUTO) 2.3 /CMM (0.1-1.30); MONOCYTES % (AUTO) 14.3 % (2.0-12.0); NEUTROPHILS # (AUTO) 11.9 /CMM (1.8-8.9); NEUTROPHILS % (AUTO) 75.4 % (43.0-81.0); PLATELET COUNT (AUTO) 200 /CMM (150-450); RED BLOOD CELL COUNT(AUTO) 4.26 MIL/uL (4.0-5.2); WHITE BLOOD COUNT (AUTO) 15.8 K/uL (4.3-11.0)
[2020-02-17 04:37] LABS: ALANINE AMINOTRANSFERASE 26 U/L (12-78); ALBUMIN 2.8 g/dL (3.4-5.0); ALCOHOL, BLOOD < 3 mg/dL (0-0); ALKALINE PHOSPHATASE 120 U/L (46-116); ASPARTATE AMINOTRANSFERASE 17 U/L (15-37); BILIRUBIN,DIRECT 0.1 mg/dL (0.0-0.2); BILIRUBIN,TOTAL 0.4 mg/dL (0.2-1.0); CALCIUM, SERUM 8.4 mg/dL (8.5-10.1); CARBON DIOXIDE 29 mmol/L (21-32); CHLORIDE 94 mmol/L (98-107); CREATININE 0.8 mg/dL (0.6-1.3); GLUCOSE 111 mg/dL (74-106); SALICYLATE 3.4 mg/dL (2.8-20.0); SODIUM SERUM 136 mmol/L (136-145); TOTAL PROTEIN, SERUM 7.4 g/dL (6.4-8.2); UREA NITROGEN, BLOOD 7 mg/dL (7-18)
[2020-02-17 04:40] LABS: POTASSIUM 2.4 mmol/L (3.5-5.1)
[2020-02-17 05:00] LABS: ACETAMINOPHEN 0 ug/ml (10-30)
[2020-02-17] MEDS ORDERED: POTASSIUM CHLORIDE 20 MEQ TAB.PRT.SR PO ONE ×2 (05:30)
--- NOTE | 2020-02-17 05:53 | NUR ---
Patient does not wish to proceed with medical care recommended by Dr. Mancilla. Patient given information related to possible complications, up to and including , which could occur as a result of leaving the hospital at this time. Patient verbalizes understanding of risks involved due to leaving against medical advice. Patient has signed AMA form.
== END 2020-02-17 05:56 | disposition home or self-care (01) ==
LOC: ER 03:24
DX: R46.1 Bizarre personal appearance (principal); Z88.8 Allergy status to other drugs, medicaments and biological substances; Z59.0 Homelessness
CPT/HCPCS: 36415; 80048; 80076; 80307; 80329; 85025; 99283; G0480

== ENCOUNTER 2020-07-27 11:03 | Emergency (ER) | payer MEDICAID ==
[~2020-07-27] VITALS: Ht 172.7 cm; Wt 65.8 kg
[2020-07-27] MEDS ORDERED: OLANZAPINE 10 MG VIAL IM ONE ×2 (11:30→11:39)
--- NOTE | 2020-07-27 11:35 | NUR ---
KARIN AND [employer] FROM STREET TO ER BED 15. AGITATED. BROUGHT IN FOR DANGER TO SELF. PT WAS HITTING HERSELF, BANGING HER HEAD AND WAS REPORTED HOLDING A PAIR OF SCISSORS. PT WAS PLACED ON 5150 HOLD FOR DTO AND DTS, WRITTEN ON 07/27/20 @ 1130 BY [employer]. ALL BELONGINGS TAKEN AWAY FOR SAFETY AND GOWN. WAS AT THE BEDSIDE FOR EVAL. ORDERS RECEIVED, NOTED AND CARRIED OUT.
[2020-07-27 12:51] LABS: BASOPHILS # (AUTO) 0.1 /CMM (0.0-0.2); BASOPHILS % (AUTO) 0.5 % (0.0-2.0); EOSINOPHILS % (AUTO) 1.6 % (0.0-6.0); HEMATOCRIT 41 % (33-45); HEMOGLOBIN 13.6 g/dL (11.5-14.8); LYMPHOCYTES # (AUTO) 1.5 /CMM (0.8-4.8); LYMPHOCYTES % (AUTO) 13.6 % (20.0-44.0); MEAN CORPUSCULAR HGB CONC 33 g/dl (31.0-36.0); MEAN CORPUSCULAR VOLUME 85 fL (82-100); MONOCYTES # (AUTO) 1.1 /CMM (0.1-1.30); MONOCYTES % (AUTO) 10.1 % (2.0-12.0); NEUTROPHILS # (AUTO) 7.9 /CMM (1.8-8.9); NEUTROPHILS % (AUTO) 74.2 % (43.0-81.0); PLATELET COUNT (AUTO) 447 /CMM (150-450); RED BLOOD CELL COUNT(AUTO) 4.89 MIL/uL (4.0-5.2); WHITE BLOOD COUNT (AUTO) 10.6 K/uL (4.3-11.0)
[2020-07-27 12:55] LABS: CALCIUM, SERUM 9.4 mg/dL (8.5-10.1); CARBON DIOXIDE 29 mmol/L (21-32); CHLORIDE 98 mmol/L (98-107); CREATININE 1.3 mg/dL (0.6-1.3); GLUCOSE 143 mg/dL (74-106); POTASSIUM 2.9 mmol/L (3.5-5.1); SODIUM SERUM 138 mmol/L (136-145); UREA NITROGEN, BLOOD 19 mg/dL (7-18)
[2020-07-27 13:01] LABS: ACETAMINOPHEN 0 ug/ml (10-30); ALANINE AMINOTRANSFERASE 34 U/L (12-78); ALBUMIN 3.6 g/dL (3.4-5.0); ALCOHOL, BLOOD < 3 mg/dL (0-0); ALKALINE PHOSPHATASE 111 U/L (46-116); ASPARTATE AMINOTRANSFERASE 31 U/L (15-37); BILIRUBIN,DIRECT 0.1 mg/dL (0.0-0.2); BILIRUBIN,TOTAL 0.3 mg/dL (0.2-1.0); TOTAL PROTEIN, SERUM 7.8 g/dL (6.4-8.2)
--- NOTE | 2020-07-27 13:25 | NUR ---
RECEIVED RESULT FROM MAIN LAB: RAPID COVID NEGATIVE
[2020-07-27] MEDS ORDERED: POTASSIUM CHLORIDE 20 MEQ TAB.PRT.SR PO ONE ×2 (13:30→15:48)
[2020-07-27 15:40] LABS: BILIRUBIN,URINE Negative (NEGATIVE); COLOR,URINE YELLOW (YELLOW); LEUKOCYTE ESTERASE ,URINE Negative (NEGATIVE); NITRITE, URINE Positive (NEGATIVE); PH,URINE 5.5 (5.0-8.0); PROTEIN,URINE 100 mg/dl (NEGATIVE); UGLUCOSE Negative (NEGATIVE); UROBILINOGEN,URINE 0.2 EU/dL (0.2)
[2020-07-27 18:35] LABS: WBC,URINE 0-2 /HPF (0-3)
[2020-07-27 18:37] LABS: BACTERIA,URINE Moderate /HPF (None Seen)
--- NOTE | 2020-07-27 18:38 | NUR ---
FADAVIE GARCES AT [facility] AND HOLD.
--- NOTE | 2020-07-27 19:05 | NUR ---
REC'D REPORT FROM CHRISTIAN MEJIA FOR HELEN
--- NOTE | 2020-07-27 19:53 | NUR ---
JORGE CHARGE NURSE FROM [facility] ACCEPTED PT ANNELISE PATTERN DRUM MAKERSCHOOL TEACHER CHARGE NURSE WILL CALL BACK FOR FURTHER INFO NUMBER: ACCEPTING MD [facility] ROOM [address] [place], [place] [id number]
--- NOTE | 2020-07-27 20:00 | NUR ---
[facility] ETA 20 MINUTES
--- NOTE | 2020-07-27 20:01 | NUR ---
BG 80
--- NOTE | 2020-07-27 20:05 | NUR ---
PT AWAKE AND ALERT EATING A SANDWICH. PT UNABLE TO REMEMBER THE EVENTS THAT BROUGHT HER TO THE ER.
--- NOTE | 2020-07-27 20:20 | NUR ---
GAVE REPORT TO NIGHT CHARGE NURSEWILLIE AT [facility]
[2020-07-27 20:45] VITALS: BP 105/65
--- NOTE | 2020-07-27 20:45 | NUR ---
GAVE REPORT TO EMS
== END 2020-07-27 20:50 ==
LOC: ER 11:05
DX: F23 Brief psychotic disorder (principal); F15.10 Other stimulant abuse, uncomplicated; F19.10 Other psychoactive substance abuse, uncomplicated; Z59.0 Homelessness; E87.6 Hypokalemia; Z20.822 Contact with and (suspected) exposure to COVID-19
CPT/HCPCS: 36415; 80048; 80076; 80299; 80307; 80320; 81001; 82962; 85025; 87086; 87426; 96372; 99291; C9803; J3490; G0480